=== PATIENT | male | born 1995 | race Caucasian/White ===

== ENCOUNTER 2018-06-11 17:23 | Emergency (ER) | payer OTHER ==
[2018-06-11 17:33] VITALS: BP 142/63
[2018-06-11 18:29] LABS: ABSOLUTE BASOPHILS # (AUTO) 0.1 10^3/uL (0.0-0.2); ABSOLUTE EOSINOPHILS # (AUTO) 0.3 10^3/uL (0.0-0.6); ABSOLUTE LYMPHOCYTES (AUTO) 3.4 10^3/uL (0.5-4.7); ABSOLUTE MONOCYTES (AUTO) 0.7 10^3/uL (0.1-1.4); ABSOLUTE NEUT (AUTO) 5.5 10^3/uL (1.7-8.2); BASOPHILS % (AUTO) 1.1 % (0-2); EOSINOPHILS % (AUTO) 3.4 % (0-6); HEMATOCRIT 48.3 % (37.9-51.0); LYMPHOCYTES % (AUTO) 34.3 % (13-45); MEAN CORPUSCULAR HEMOGLOBIN 28.9 pg (27.0-33.4); MEAN CORPUSCULAR HGB CONC 35.2 g/dL (32.0-36.0); MEAN CORPUSCULAR VOLUME 82 fl (80-97); MONOCYTES % (AUTO) 6.5 % (3-13); PLATELET COUNT 235 10^3/uL (150-450); RED BLOOD COUNT 5.89 10^6/uL (4.35-5.55); RED CELL DISTRIBUTION WIDTH 13.5 % (11.5-14.0); SEGMENTED NEUTROPHILS % (AUTO) 54.7 % (42-78); TOTAL CELLS COUNTED % (AUTO) 100 %
--- NOTE | 2018-06-11 18:30 | RADIOLOGY REPORT (SQ) ---
EXAM DESCRIPTION: FINGER RIGHT COMPLETED DATE/TIME: 06/11/2018 6:20 pm REASON FOR STUDY: Injured finger-shingles dropped on hand 2 days ago COMPARISON: None. NUMBER OF VIEWS: Three views. TECHNIQUE: AP, lateral, and oblique images acquired of the right second finger. LIMITATIONS: None. FINDINGS: MINERALIZATION: Normal. BONES: No acute fracture or dislocation. No worrisome bone lesions. SOFT TISSUES: No soft tissue swelling. No foreign body. OTHER: No other significant finding. IMPRESSION: No fracture or dislocation of the right 2nd digit. COMMENT: SITE OF TRAUMA/COMPLAINT MARKED/STAMP COMPLETED: YES. TECHNICAL DOCUMENTATION: JOB ID: [id number] [employer]- All Rights Reserved Reading location - IP/workstation name: [email or web address]
[2018-06-11] MEDS ORDERED: LIDOCAINE 1% INJ-PF (10 MG/ML) 30 ML SDV INJ ONE (19:06)
--- NOTE | 2018-06-11 19:33 | ER Document Report ---
ED Hand/Wrist Injury - General Chief Complaint: Finger Injury Stated Complaint: FINGER INJURY Time Seen by Provider: 06/11/18 18:03 Mode of Arrival: Ambulatory Information source: Patient Notes: Patient is a 22-year-old male who comes emergency room complaining of right index finger pain. Patient states that 2 days ago he dropped a bundle of shingles on the hand and he believes he might have broken the finger. He has pain to the index finger at the difficulty with gripping with it. Denies any other injuries. TRAVEL OUTSIDE OF THE [place] IN LAST 30 DAYS: No - HPI Injury to: Index finger Onset: Other - 2 days Where: Work Timing: Constant, Worse Quality of pain: Fullness, Pressure, Sharp, Throbbing Severity: Moderate Pain Level: 3 Context: Swelling - Related Data Allergies/Adverse Reactions: No Known Allergies Allergy (Unverified 05/26/11 17:23) Past Medical History - General Information source: Patient - Social History Smoking Status: Current Every Day Smoker Cigarette use (# per day): Yes Chew tobacco use (# tins/day): No Smoking Education Provided: No Frequency of alcohol use: Occasional Drug Abuse: None Family History: Reviewed & Not Pertinent Patient has suicidal ideation: No Patient has homicidal ideation: No Renal/ Medical History: Denies: Hx Peritoneal Dialysis - Immunizations Immunizations up to date: Yes Hx Diphtheria, Pertussis, Tetanus Vaccination: Yes Review of Systems - Review of Systems Constitutional: No symptoms reported EENT: No symptoms reported Cardiovascular: No symptoms reported Respiratory: No symptoms reported Gastrointestinal: No symptoms reported Genitourinary: No symptoms reported Male Genitourinary: No symptoms reported Musculoskeletal: See HPI Skin: See HPI, Change in color, Lumps Hematologic/Lymphatic: No symptoms reported Neurological/Psychological: No symptoms reported -: Yes All other systems reviewed and negative Physical Exam - Vital signs Vitals: Temp Pulse Resp BP Pulse Ox 97.8 F 70 18 142/63 H 97 06/11/18 17:30 06/11/18 17:30 06/11/18 17:30 06/11/18 17:30 06/11/18 17:30 Interpretation: Hypertensive - Notes Notes: PHYSICAL EXAMINATION: GENERAL: Well-appearing, well-nourished and in no acute distress. HEAD: Atraumatic, normocephalic. NECK: Normal range of motion, supple without lymphadenopathy LUNGS: Breath sounds clear to auscultation bilaterally and equal. No wheezes rales or rhonchi. HEART: Regular rate and rhythm without murmurs Musculoskeletal: Examination of the area of concern is patient's right index finger. Patient has hand lay flat on the desk dorsal side down the index finger is swollen from the base of the knuckle inward towards the middle finger and down to the base of the index finger. Very tender to palpate fluctuant as well. Moderate amount of warmth. Patient has good circulation with cap refill in the distal nail of that finger. He has all range of motion in all directions. Strength against resistance is also in all directions. Discoloration in the area is minimal at this time. Presentation is that of a infection without a site of entrance at this time. NEUROLOGICAL: Normal speech, normal gait. Normal sensory, motor exams PSYCH: Normal mood, normal affect. SKIN: Warm, Dry, normal turgor, no rashes or lesions noted. Course - Re-evaluation Re-evalutation: 06/11/18 19:40 After x-rays and lab work completed I went in to talk to patient since he was a hand up from [facility]. I re-discussed case with patient and he finally informed me that there had been a callus just underneath where that area had increased in size of pain and discomfort and because of the swelling kind of hit it underneath. After the I&D patient was complaining of it even throbbing because I applied a lot of pressure to get the core out. He still has full range of motion with the finger and good feeling on sensation distally in the tip of the finger. - Vital Signs Vital signs: Temp Pulse Resp BP Pulse Ox 97.8 F 70 18 142/63 H 97 06/11/18 17:30 06/11/18 17:30 06/11/18 17:30 06/11/18 17:30 06/11/18 17:30 - Laboratory Result Diagrams: 06/11/18 18:20 Laboratory results interpreted by me: 06/11/18 18:20 RBC 5.89 H Procedures - Incision and Drainage Right 2nd digit Time completed: 19:39 Type: Simple Anesthetic type: 1% Lidocaine mL's of anesthetic: 1 Blade size: 11 I&D procedure: Betadine prep applied, Shurclens applied, Sterile dressing applied Incision Method: Incision made by scalpel Amount/type of drainage: 1.5 mL's of thick white pus/apparent core came out as well. Discharge - Discharge Clinical Impression: Abscess of right index finger Contusion of right hand Qualifiers: Encounter type: initial encounter Qualified Code(s): S60.221A - Contusion of right hand, initial encounter Condition: Stable Disposition: HOME, SELF-CARE Instructions: Abscess ([facility]), Cephalexin ([facility]), Oral Narcotic Medication ([facility]), Post Incision and Drainage, Trimethoprim-Sulfa ([facility]) Additional Instructions: As we discussed this area was infected and you must watch very closely for the next 48 hours or so. Try to avoid overstressing it for the next 48 hours. Warm soaks and use the antibiotic soap I provided for you. This is water warming up out of the tap as you can stand it without making it burn. Soak it 2 or 3 times a night before bed and then 3-4 times a day for the next 2-3 days. As I discussed with you up seen a few of these were they have gotten out of hand and turned into a "sausage finger". This is where your finger looks like a sausage. If this is not happens to you you need to return to ER at once for recheck. Also check the circulation like it showed you by pinching the nail bed and turning white and releasing and turning quickly read good circulation. If you have any concerns or problems return to ER for recheck. Please take all of the antibiotics that are written for you. Prescriptions: Cephalexin Monohydrate [Keflex 500 mg Capsule] 500 mg PO Q6H 7 Days #28 capsule Hydrocodone/Acetaminophen [[place] 7.5-325 Tablet] 1 each PO Q6 PRN #10 tablet PRN Reason: Sulfamethoxazole/Trimethoprim [Bactrim Ds Tablet] 1 each PO BID #20 tablet Forms: Elevated Blood Pressure, Return to Work Referrals: [facility] [NO LOCAL MD] - Follow up as needed
[2018-06-11] MEDS ORDERED: SULFAMETHOXAZOLE/TRIMETHOPRIM 800-160 MG TABLET PO ONE (19:48)
[2018-06-11] MEDS ORDERED: HYDROCODONE/ACETAMINOPHEN 5-325 MG TABLET PO ONE (19:48)
[2018-06-11] MEDS ORDERED: CEPHALEXIN 500 MG CAPSULE PO ONE (19:48)
== END 2018-06-11 20:05 | disposition home or self-care (01) ==
LOC: ER 17:23
PROC: 0H9FXZZ Drainage of Right Hand Skin, External Approach (ICD-10-PCS; principal; 2018-06-11)
DX: S60.221A Contusion of right hand, initial encounter (principal); L02.511 Cutaneous abscess of right hand; M79.644 Pain in right finger(s); W22.8XXA Striking against or struck by other objects, initial encounter; F17.210 Nicotine dependence, cigarettes, uncomplicated
CPT/HCPCS: 36415; 85025; 87070; 87077; 87186; 87205; 99284

== ENCOUNTER 2019-12-30 07:47 | Emergency (ER) | payer OTHER ==
[2019-12-30 08:00] VITALS: BP 126/73
== END 2019-12-30 08:10 | disposition left against medical advice (07) ==
LOC: ER 07:47
DX: Z53.21 Procedure and treatment not carried out due to patient leaving prior to being seen by health care provider (principal); R11.0 Nausea; M79.10 Myalgia, unspecified site

== ENCOUNTER 2020-01-03 09:43 | Emergency (ER) | payer OTHER ==
[2020-01-03 09:53] VITALS: BP 130/67
--- NOTE | 2020-01-03 11:33 | ER Document Report ---
ED General - General Chief Complaint: Pain All Over Stated Complaint: BODY ACHES/NAUSEA Time Seen by Provider: 01/03/20 10:41 Notes: 24-year-old male with no pertinent past medical history presenting today for full body soreness. He describes any weakness. No pain with urination or change in his urine. 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 He denies any headaches, fevers, chills shortne ss of breath or additional symptoms at this time. States all he wants is a work note. TRAVEL OUTSIDE OF THE [place] IN LAST 30 DAYS: No - Related Data Allergies/Adverse Reactions: No Known Allergies Allergy (Unverified 05/26/11 17:23) Past Medical History - Social History Smoking Status: Current Every Day Smoker Family History: Reviewed & Not Pertinent Renal/ Medical History: Denies: Hx Peritoneal Dialysis - Immunizations Immunizations up to date: Yes Hx Diphtheria, Pertussis, Tetanus Vaccination: Yes Review of Systems - Review of Systems Constitutional: See HPI EENT: No symptoms reported Cardiovascular: No symptoms reported Respiratory: No symptoms reported Gastrointestinal: No symptoms reported Genitourinary: No symptoms reported Male Genitourinary: No symptoms reported Musculoskeletal: See HPI Skin: No symptoms reported Neurological/Psychological: No symptoms reported Physical Exam - Vital signs Vitals: Temp Pulse Resp BP Pulse Ox 98.5 F 69 16 130/67 H 99 01/03/20 09:51 01/03/20 09:51 01/03/20 09:51 01/03/20 09:51 01/03/20 09:51 Interpretation: Normal - Notes Notes: Adult General: GENERAL: Alert, interacts well. No acute distress HEAD: Normocephalic, atraumatic EYES: Extraocular movements intact. ENT: Airway patent. Nares patent. NECK: Full range of motion. Supple. Trachea midline. LUNGS: Clear to auscultation bilaterally, no wheezes, rales, or rhonchi. No respiratory distress. Nontender chest wall. HEART: Regular rate and rhythm. No murmurs, rubs or gallops. ABDOMEN: Soft, nontender. GENITOURINARY: Deferred EXTREMITIES: Moves all 4 extremities spontaneously. No edema, normal radial and dorsal pedis pulses bilaterally. No cyanosis. BACK: No cervical, thoracic, lumbar midline tenderness. Normal distal neurovascular exam. Moves all extremities with full range of motion. NEUROLOGICAL: Alert and oriented x3. Normal speech. Strength 5/ 5 in all extremities. PSYCH: Normal affect, normal mood. SKIN: Warm, dry, normal turgor. No rashes or lesions noted. Course - Re-evaluation Re-evalutation: 01/03/20 11:30 Patient was evaluated and I discussed with patient I do feel that based on his generalized soreness he can evaluate from additional testing to include CBC, CMP and CK. Patient states that he does not desire additional testing this time and all he wants is a work note. Discussed with patient that his soreness could be due to electrolyte imbalance or rhabdo and that a further evaluation is recommended to identify electrolyte imbalances that could lead to . Patient states he believes his symptoms are due to sleeping in his bed incorrectly. Patient continues to refuse labs. He verbalizes understanding that having no labs drawn can be detrimental to him and that I recommend additional testing. I will go ahead and discharge patient without any labs. Recommend patient follow-up with his primary care provider for continued or worsening symptoms. May return to the emergency department if he also develops worsening or new symptoms. - Vital Signs Vital signs: Temp Pulse Resp BP Pulse Ox 98.5 F 69 16 130/67 H 99 01/03/20 09:51 01/03/20 09:51 01/03/20 09:51 01/03/20 09:51 01/03/20 09:51 Discharge - Discharge Clinical Impression: Muscle soreness Condition: Stable Disposition: HOME, SELF-CARE Additional Instructions: I do not have a good cause for your symptoms. Recommend he follow-up with your primary care provider for additional lab work. Return to the emergency department if you have worsening symptoms or development of new symptoms Forms: Return to Work
== END 2020-01-03 11:40 | disposition home or self-care (01) ==
LOC: ER 09:43
DX: R29.898 Other symptoms and signs involving the musculoskeletal system (principal); F17.200 Nicotine dependence, unspecified, uncomplicated
CPT/HCPCS: 99283

== ENCOUNTER 2020-02-19 12:50 | Emergency (ER) | payer SELFPAY ==
[2020-02-19 12:56] VITALS: BP 142/76
[2020-02-19] MEDS ORDERED: NORMAL SALINE 1000 ML 1,000 ML IV ONE (13:48)
--- NOTE | 2020-02-19 13:49 | ER Document Report ---
ED General - General Chief Complaint: Diarrhea Stated Complaint: DIARRHEA,COUGH,MUSCLE PAIN Time Seen by Provider: 02/19/20 13:08 Notes: 24-year-old male presents to the emergency department with a 3 to 4-day history of body aches and pains with associated diarrhea and feeling poorly. He denies cough, fever, congestion. He denies exposure to a known positive COVID individual. He denies nausea and vomiting or abdominal pain. TRAVEL OUTSIDE OF THE [place] IN LAST 30 DAYS: No - Related Data Allergies/Adverse Reactions: No Known Allergies Allergy (Unverified 05/26/11 17:23) Past Medical History - Social History Smoking Status: Current Every Day Smoker Drug Abuse: Marijuana Family History: Reviewed & Not Pertinent Renal/ Medical History: Denies: Hx Peritoneal Dialysis - Immunizations Immunizations up to date: Yes Hx Diphtheria, Pertussis, Tetanus Vaccination: Yes Review of Systems - Review of Systems Notes: Constitutional: Negative for fever. HENT: Negative for sore throat. Eyes: Negative for visual changes. Cardiovascular: Negative for chest pain. Respiratory: Negative for shortness of breath. Gastrointestinal: + Diarrhea Genitourinary: Negative for dysuria. Musculoskeletal: + Myalgia Skin: Negative for rash. Neurological: Negative for headaches, weakness or numbness. 10 point ROS negative except as marked above and in HPI. Physical Exam - Vital signs Vitals: Temp Pulse Resp BP Pulse Ox 98.7 F 93 18 142/76 H 99 02/19/20 12:54 02/19/20 12:54 02/19/20 12:54 02/19/20 12:54 02/19/20 12:54 - Notes Notes: PHYSICAL EXAMINATION: Physical Exam: General: Well-nourished well-developed 24-year-old male in no acute distress HEENT: NC/AT, pupils equal round and reactive to light, MM moist,nares clear, oropharynx clear, airway patent Neck: supple, no adenopathy, no masses. Good range of motion Lungs: clear, no wheezing, no rales no rhonchi CVS: Regular rate and rhythm no murmur gallop or rub Abdomen: Soft, active, nontender, no masses, no hepatosplenomegaly Ext: No edema, clubbing or cyanosis. Neuro: Alert and responsive, moving all 4 extremities on command, cranial nerves intact, no focal findings Skin: Intact no open lesions, no rash PSYCH: Normal mood, normal affect. Course - Re-evaluation Re-evalutation: 02/19/20 18:17 I have reviewed the labs reveals no abnormalities in the CBC CMP and urinalysis. Patient has some symptoms which are concerning for possible coronavirus infection. Body aches and pains and GI symptoms. A coronavirus test will be performed with the patient becoming a person of interest. He will need to self quarantine until he receives the results. - Vital Signs Vital signs: Temp Pulse Resp BP Pulse Ox 98.7 F 93 18 142/76 H 99 02/19/20 12:54 02/19/20 12:54 02/19/20 12:54 02/19/20 12:54 02/19/20 12:54 - Laboratory Result Diagrams: 02/19/20 16:00 02/19/20 16:00 Laboratory results interpreted by me: 02/19/20 02/19/20 13:25 16:00 RBC 5.89 H Urine Ketones TRACE H Discharge - Discharge Clinical Impression: Suspected 2019 novel coronavirus infection Condition: Good Disposition: HOME, SELF-CARE Instructions: COVID-19 Guidance for Persons Under Investigation Additional Instructions: In the emergency department today with body aches and pains and GI symptoms with associated diarrhea. Given the pandemic and coronavirus concerns, your were made a person of interest and a swab was collected and will be sent for COVID-19 evaluation. You will need to self quarantine until you get the results. You may use Tylenol and or ibuprofen for body aches and pains. Please push fluids and monitor your symptoms closely. Please return to the hospital if her symptoms are worsening or development of shortness of breath.
[2020-02-19 16:06] LABS: APPEARANCE,URINE CLEAR; BILIRUBIN,URINE NEGATIVE (NEGATIVE); COLOR,URINE YELLOW; GLUCOSE, URINE NEGATIVE (NEGATIVE); KETONES,URINE TRACE mg/dL (NEGATIVE); LEUKOCYTE ESTERASE,URINE NEGATIVE (NEGATIVE); NITRITE,URINE NEGATIVE (NEGATIVE); PROTEIN,URINE NEGATIVE (NEGATIVE); URINE SPECIFIC GRAVITY 1.011; UROBILINOGEN,URINE NEGATIVE mg/dL (<2.0)
[2020-02-19 16:29] LABS: ABSOLUTE BASOPHILS # (AUTO) 0.1 10^3/uL (0.0-0.2); ABSOLUTE EOSINOPHILS # (AUTO) 0.1 10^3/uL (0.0-0.6); ABSOLUTE LYMPHOCYTES (AUTO) 2.6 10^3/uL (0.5-4.7); ABSOLUTE MONOCYTES (AUTO) 0.7 10^3/uL (0.1-1.4); ABSOLUTE NEUT (AUTO) 7.1 10^3/uL (1.7-8.2); BASOPHILS % (AUTO) 0.8 % (0-2); EOSINOPHILS % (AUTO) 0.7 % (0-6); HEMATOCRIT 47.7 % (37.9-51.0); HEMOGLOBIN 16.6 g/dL (13.5-17.0); LYMPHOCYTES % (AUTO) 24.7 % (13-45); MEAN CORPUSCULAR HEMOGLOBIN 28.1 pg (27.0-33.4); MEAN CORPUSCULAR HGB CONC 34.7 g/dL (32.0-36.0); MEAN CORPUSCULAR VOLUME 81 fl (80-97); MONOCYTES % (AUTO) 6.2 % (3-13); PLATELET COUNT 252 10^3/uL (150-450); RED BLOOD COUNT 5.89 10^6/uL (4.35-5.55); RED CELL DISTRIBUTION WIDTH 13.5 % (11.5-14.0); SEGMENTED NEUTROPHILS % (AUTO) 67.6 % (42-78); TOTAL CELLS COUNTED % (AUTO) 100 %; WHITE BLOOD COUNT 10.5 10^3/uL (4.0-10.5)
[2020-02-19 16:48] LABS: ALBUMIN 4.2 g/dL (3.5-5.0); ALKALINE PHOSPHATASE 66 U/L (38-126); ANION GAP 7 (5-19); ASPARTATE AMINO TRANSFERASE 23 U/L (17-59); BILIRUBIN,TOTAL 0.7 mg/dL (0.2-1.3); BLOOD UREA NITROGEN 12 mg/dL (7-20); CALCIUM 9.2 mg/dL (8.4-10.2); CARBON DIOXIDE 27 mmol/L (22-30); CHLORIDE 105 mmol/L (98-107); GLUCOSE 81 mg/dL (75-110); POTASSIUM 3.9 mmol/L (3.6-5.0); TOTAL PROTEIN 6.9 g/dL (6.3-8.2)
== END 2020-02-19 19:07 | disposition home or self-care (01) ==
LOC: ER 12:50
DX: Z20.828 Contact with and (suspected) exposure to other viral communicable diseases (principal); R19.7 Diarrhea, unspecified; R05 Cough; M79.10 Myalgia, unspecified site; F17.200 Nicotine dependence, unspecified, uncomplicated
CPT/HCPCS: 99284; 96360; 36415; 85025; 87635; 80053; 81001; J7030; C9803

== ENCOUNTER 2020-03-31 11:00 | Emergency (ER) | payer SELFPAY ==
[2020-03-31] MEDS ORDERED: FAMOTIDINE 20 MG TABLET PO ONE (11:59)
[2020-03-31] MEDS ORDERED: PREDNISONE 20 MG TABLET PO ONE (11:59)
--- NOTE | 2020-03-31 12:00 | ER Document Report ---
HPI - HPI Time Seen by Provider: 03/31/20 11:53 Pain Level: 2 Context: Patient is a 24-year-old male with no past medical history presents emergency department with a chief complaint of upper lip swelling and "red bumps" to his torso and upper arms. Patient states that he took a "allergy medicine" last night and his symptoms got better, but continues to have upper lip swelling. He does not take any medications. Denies any new lotions, creams, colognes, perfumes, or detergents. States that this pops up every once in a while and will go away on its own. Patient has not seen a primary care provider for this issue. - ROS Systems Reviewed and Negative: Yes All other systems reviewed and negative - RESPIRATORY Respiratory: DENIES: Trouble Breathing, Coughing - GASTROINTESTINAL Gastrointestinal: DENIES: Abdominal Pain, Nausea, Patient vomiting - REPRODUCTIVE Reproductive: DENIES: : - MUSCULOSKELETAL Musculoskeletal: REPORTS: Swelling - Upper lip. DENIES: Extremity pain, Back Pain, Neck Pain - DERM Skin Color: Normal Skin Problems: None Past Medical History - Social History Smoking Status: Current Every Day Smoker Chew tobacco use (# tins/day): No Frequency of alcohol use: None Drug Abuse: Marijuana Family History: Reviewed & Not Pertinent Patient has homicidal ideation: No Renal/ Medical History: Denies: Hx Peritoneal Dialysis - Immunizations Immunizations up to date: Yes Hx Diphtheria, Pertussis, Tetanus Vaccination: Yes Vertical Provider Document - CONSTITUTIONAL Agree With Documented VS: Yes Exam Limitations: No Limitations General Appearance: No Apparent Distress - INFECTION CONTROL TRAVEL OUTSIDE OF THE [place] IN LAST 30 DAYS: No - HEENT HEENT: Atraumatic, Normocephalic, PERRLA - NECK Neck: Normal Inspection - RESPIRATORY Respiratory: Breath Sounds Normal, No Respiratory Distress - CARDIOVASCULAR Cardiovascular: Regular Rate, Regular Rhythm, No Murmur Pulses: Normal: Radial - GI/ABDOMEN Gastrointestinal: Abdomen Soft, Abdomen Non-Tender - MUSCULOSKELETAL/EXTREMETIES Musculoskeletal/Extremeties: FROM, Edema - Upper lip - NEURO Level of Consciousness: Awake, Alert, Appropriate Motor/Sensory: No Motor Deficit, No Sensory Deficit - DERM Integumentary: Warm, Dry, No Rash Course - Re-evaluation Re-evalutation: 03/31/20 12:01 We will give the patient Pepcid and prednisone. Will reevaluate patient. We will hold off on giving Benadryl, as the patient is driving. 03/31/20 14:00 Patient has some improvement with his upper lip swelling. Will keep him on pepcid and prednisone. He is in agreement with this plan. Follow-up precautions were given. Verbal discharge instructions were given to the patient. They verbalized understanding. They are stable for discharge. - Vital Signs Vital signs: Temp Pulse Resp BP Pulse Ox 98.2 F 71 18 126/63 H 99 03/31/20 11:52 03/31/20 11:06 03/31/20 11:06 03/31/20 11:06 03/31/20 11:06 Discharge - Discharge Clinical Impression: Swelling of upper lip, Tooth decay Condition: Stable Disposition: HOME, SELF-CARE Additional Instructions: You were seen today in the emergency department for lip swelling and a rash, which the rash went away on its own. Take Pepcid and prednisone as prescribed. Follow-up with a regular doctor. Check to see if you have insurance or qualify for insurance. You are also being started on antibiotics for your teeth. Please follow-up with a dentist within the next week. Make an appointment to have your teeth addressed. Prescriptions: Prednisone [Deltasone 20 mg Tablet] 3 tab PO DAILY 4 Days #12 tablet Penicillin V Potassium [Penicillin Vk 500 mg Tablet] 500 mg PO BID #20 tablet Famotidine [Pepcid 20 mg Tablet] 20 mg PO BID #12 tablet Forms: Return to Work Referrals: [facility] [Provider Group] - Follow up in 1 week
[2020-03-31 14:06] VITALS: BP 129/61
== END 2020-03-31 14:06 | disposition home or self-care (01) ==
LOC: ER 11:00
DX: R22.0 Localized swelling, mass and lump, head (principal); K02.9 Dental caries, unspecified; F17.200 Nicotine dependence, unspecified, uncomplicated; F12.10 Cannabis abuse, uncomplicated
CPT/HCPCS: 99283; J7512